=== PATIENT | male | born 1940 | race Caucasian/White ===

== ENCOUNTER 2017-10-04 06:17 | Day surgery (SDC) | payer OTHER ==
[2017-10-02 14:49] LABS: Absolute Lymphocytes (CBC) 1.8 K/uL (0.7-4.9); Absolute Monocytes 0.5 K/uL (0.1-1.3); Absolute Neutrophil 3.5 K/uL (1.8-8.0); Basophils % 0.3 % (0-1.3); Eosinophils % 4.4 % (0-4.4); Hematocrit 42.6 % (39.6-49.0); MCH 29.5 pg (27.0-35.0); MCV 88.1 fL (80-100); MPV 10.5 fL (7.6-11.3); Monocytes % 8.1 % (3.3-12.3); RBC Red Blood Cell Count 4.83 M/uL (4.33-5.43)
[2017-10-02 15:00] LABS: Protime INR 0.97
[2017-10-02 15:07] LABS: BUN Blood Urea Nitrogen 14 mg/dL (7-18); Bicarbonate 28 mmol/L (21-32); Glucose Level 92 mg/dL (74-106); Potassium 3.8 mmol/L (3.5-5.1); Sodium Level 142 mmol/L (136-145)
--- NOTE | 2017-10-02 15:14 | RAD REPORT ---
EXAM DESCRIPTION: RAD - Chest Pa And Lat (2 Views) - 10/02/2017 2:41 pm CLINICAL HISTORY: Preop chest, pending vascular catheterization procedure of the heart and lungs COMPARISON: None. TECHNIQUE: PA and lateral views of the chest were obtained. FINDINGS: The lungs are normal volume. Linear stranding in the left base is scarring or atelectasis. No failure or infiltrate findings. Trachea is midline. Heart size is normal and central vasculatur e is within normal limits. No pleural effusion or pneumothorax seen. Osteopenic and degenerative [place] changes are present. There is partial compression of a lower thoracic vertebrae an approximately 5 0% compression of a vertebrae at the thoracolumbar junction. No blastic, lytic or expansile component . These are probably benign osteoporotic compression fractures. Patient has osteopenia overall. No ao rtic abnormality. IMPRESSION: Scarring or atelectasis changes in the left base. No acute cardiopulmonary finding. Osteopenia with multiple compression fractures, age unknown. No aggressive characteristics seen.
[2017-10-04] MEDS ORDERED: NA CHLORIDE 0.9% 500 ML ONE (06:34)
[2017-10-04] MEDS ORDERED: LIDOCAINE 1% MPF 5 ML VIAL ONE (06:35)
[2017-10-04] MEDS ORDERED: MIDAZOLAM HCL 2 MG/2 ML INJ ONE (07:01)
[2017-10-04] MEDS ORDERED: HEPA 1000U/500MLS 1,000 UNIT/500 ML BAG IV ONE (07:01)
[2017-10-04] MEDS ORDERED: LIDOCAINE 1% MPF 2 ML AMPULE ONE (07:01)
[2017-10-04] MEDS ORDERED: ATROPINE SULF 1 MG/10 ML SYR IV ONE (07:02)
[2017-10-04] MEDS ORDERED: FENTANYL CITR 100 MCG/2 ML ONE (07:02)
[2017-10-04] MEDS ORDERED: NA CHLORIDE 0.9% 0 ML ONE (07:02)
[2017-10-04] MEDS ORDERED: NA CHLORIDE 0.9% 1,000 ML ONE (11:09)
--- NOTE | 2017-10-04 12:04 | OP ---
Surgeon: Steve Oneill MD Admitted to the animal laboratory helper as an outpatient. His primary care physician is Dr. Pollard. He was admitt ed for heart catheterization with possible intervention. Reason For Admission: Abnormal stress test and abnormal EKG and chest pain. He is 77 years old. He has a history of hypertension. Description Of Procedure: He was brought to the animal laboratory helper, prepped, and draped in the routine sterile fashion. A 6-Iraqi sheath was introduced in the right common femoral artery. StarClose was used t o close the case. A Juan catheter 3.5. left Juan, and a JR4 were used for the diagnostic minnie terization. He was found to have a 50% ostial left main and 100% occlusion of the proximal to mid LA D right at the diagonal septal level, minimal circumflex plaquing, normal RCA, right dominant. A 6-F rench sheath and catheters were used. No complications. Blood Loss: 5 cc. Postoperative Diagnosis: coronary artery disease, severe. Plan: Plan is for CABG. Total Conscious Sedation: 30 minutes. Additional Monument Letterer: Merlin Alva. The patient will have a film CD with him. I am going to attempt to transfer him to [place] today hop efully to Dr. Joaquin Baca service for surgery. TAWNYA/UBALDO Voice ID: [id number] Report ID: [id number]
== END 2017-10-04 12:12 | disposition short-term general hospital (02) ==
LOC: OR 06:17
PROC: 4A023N7 Measurement of Cardiac Sampling and Pressure, Left Heart, Percutaneous Approach (ICD-10-PCS; principal; 2017-10-04)
PROC: B211YZZ Fluoroscopy of Multiple Coronary Arteries using Other Contrast (ICD-10-PCS; 2017-10-04)
DX: I25.10 Atherosclerotic heart disease of native coronary artery without angina pectoris (principal); I25.82 Chronic total occlusion of coronary artery; I10 Essential (primary) hypertension; R06.02 Shortness of breath; Z82.49 Family history of ischemic heart disease and other diseases of the circulatory system
CPT/HCPCS: 36415; 71046; 80048; 85025; 85610; 85730; 93454; C1893; J2250; J3010; J7030; J0583; J2001

== ENCOUNTER 2018-12-20 15:26 | Emergency (ER) | payer OTHER ==
[2018-12-20] MEDS ORDERED: LIDOCAINE 1% MPF 5 ML VIAL ONE (16:02)
--- NOTE | 2018-12-20 16:36 | ER ---
Nurse's Notes [facility] Name: Shamar Hoyos Age: 78 yrs Sex: Male : 1940 Arrival Date: 12/20/2018 Time: 15:28 Bed 19 Private MD: Dinorah Pollard F Diagnosis: Facial Laceration;Unspecified injury of head Presentation: 12/20 15:29 Presenting complaint: Tree branch hit face while mowing, laceration to forehead noted, hb bleeding controlled. Transition of care: patient was not received from another setting of care. Complicating Factors: There are no complicating factors for this patient. Onset of symptoms was December 20, 2018. Risk Assessment: Do you want to hurt yourself or someone else? Patient reports no desire to harm self or others. Care prior to arrival: None. 15:29 Method Of Arrival: Ambulatory hb 15:29 Acuity: MIKAYLA 4 hb 15:50 Initial Sepsis Screen: Does the patient meet any 2 criteria? No. Patient's initial em sepsis screen is negative. Does the patient have a suspected source of infection? No. Patient's initial sepsis screen is negative. Historical: - Allergies: 15:31 No Known Allergies; hb - Immunization history:: Adult Immunizations up to date. - Social history:: Smoking status: Patient/guardian denies using tobacco. - Ebola Screening: : No symptoms or risks identified at this time. Screenin:50 Abuse screen: Denies threats or abuse. Nutritional screening: No deficits noted. em Tuberculosis screening: No symptoms or risk factors identified. Fall Risk None identified. Assessment: 15:50 General: Appears in no apparent distress. comfortable, Behavior is calm, cooperative. em Pain: Complains of pain in forehead Pain currently is 1 out of 10 on a pain scale. Neuro: Level of Consciousness is awake, alert, obeys commands, Oriented to person, place, time, situation, Appropriate for age. Cardiovascular: Capillary refill < 3 seconds Patient's skin is warm and dry. Respiratory: Airway is patent Respiratory effort is even, unlabored, Respiratory pattern is regular, symmetrical. Derm: Skin is intact, is healthy with good turgor, Skin is pink, warm \T\ dry. Wound noted forehead. Musculoskeletal: Injury Description: Laceration sustained to forehead is jagged, 0.5 to 2.5 cm long, not bleeding, was sustained 30-60 minutes ago. is bleeding no active bleeding noted. Vital Signs: 15:31 BP 163 / 72; Pulse 52; Resp 16; Temp 97.1; Pulse Ox 100% on R/A; Weight 102.51 kg; hb Height 6 ft. 1 in. (185.42 cm); Pain 1/10; 15:31 Body Mass Index 29.82 (102.51 kg, 185.42 cm) hb ED Course: 15:28 Patient arrived in ED. mr 15:29 Dinorah Pollard MD is Private Physician. mr 15:30 Triage completed. hb 15:31 Arm band placed on. hb 15:34 Steve Maddox LVN is Primary Nurse. em 15:50 Patient has correct armband on for positive identification. Bed in low position. Call em light in reach. Adult w/ patient. 15:54 Jenaro Hanson PA is PHCP. [facility] 15:54 Moody Engel MD is Attending Physician. [facility] 16:33 Dinorah Pollard MD is Referral Physician. [facility] 16:53 Assist provider with laceration repair on forehead that was 2.5 cm. or less using em sutures. Set up tray. Performed by Jenaro MASTERS Dressed with 4X4s, Kerlix, Neosporin, Patient tolerated well. Patient did not have IV access during this emergency room visit. Administered Medications: 16:30 Drug: Lidocaine (1 %) 5 mg {Note: administered by SONAM Eason.} Volume: 5 ml; Route: em Infiltration; Site: wound; 16:35 Follow up: Response: No adverse reaction; Pain is decreased em Outcome: 16:35 Discharge ordered by . [facility] 16:53 Discharged to home ambulatory, with family. em 16:53 Condition: good 16:53 Discharge instructions given to patient, family, Instructed on discharge instructions, follow up and referral plans. medication usage, Demonstrated understanding of instructions, follow-up care, medications, wound care, Prescriptions given X 1. 16:56 Patient left the ED. em Signatures: Jenaro Hanson PA PA jmJolly Hernandez mr Steve Maddox, CHARMAINE PILLING MACHINE OPERATOR em Nadine Curiel RN RN Corrections: (The following items were deleted from the chart) 16:56 16:53 No provider procedures requiring assistance completed. em em
--- NOTE | 2018-12-20 16:36 | EDPHYS ---
Physician Documentation [facility] Name: Shamar Hoyos Age: 78 yrs Sex: Male : 1940 Arrival Date: 12/20/2018 Time: 15:28 Bed 19 Private MD: Dinorah Pollard F ED Physician Moody Engel HPI: 12/20 16:27 This 78 yrs old Male presents to ER via Ambulatory with complaints of jmm Laceration To Head. 16:27 The patient or guardian reports injury, pain. Onset: The symptoms/episode jmm began/occurred acutely. Associated signs and symptoms: Loss of consciousness: This patient did not experience any loss of consciousness. This is a 78 year old male that presents to the ED after injuring his head while mowing. Patient hit is face against a tree limb. Denies LOC, vomiting, denies neck pain. Patient is UTD on immunizations. . Historical: - Allergies: 15:31 No Known Allergies; hb - Immunization history:: Adult Immunizations up to date. - Social history:: Smoking status: Patient/guardian denies using tobacco. - Ebola Screening: : No symptoms or risks identified at this time. ROS: 16:27 Constitutional: Negative for fever, chills, and weight loss, Cardiovascular: Negative jmm for chest pain, palpitations, and edema, Respiratory: Negative for shortness of breath, cough, wheezing, and pleuritic chest pain. 16:27 Skin: Positive for laceration(s). 16:27 Neuro: Negative for loss of consciousness, seizure activity. 16:27 All other systems are negative. Exam: 16:27 Constitutional: This is a well developed, well nourished patient who is awake, alert, jmm and in no acute distress. 16:27 Eyes: EOMI, no conjunctival erythema appreciated ENT: Moist Mucus Membranes Neck: Trachea midline, Supple Chest/axilla: Normal chest wall appearance and motion. Cardiovascular: Regular rate and rhythm. No edema appreciated Respiratory: Normal respirations, no respiratory distress appreciated Abdomen/GI: Non distended, soft Back: Normal ROM 16:27 Head/face: Exam is negative for rivero signs, hematoma, raccoon eyes, Noted is a laceration(s), that is jagged, 2.5 cm(s). 16:27 Skin: stellate laceration noted to the left eyebrow. 16:27 Neuro: Orientation: is normal, Mentation: is normal, Memory: is normal. Vital Signs: 15:31 BP 163 / 72; Pulse 52; Resp 16; Temp 97.1; Pulse Ox 100% on R/A; Weight 102.51 kg; hb Height 6 ft. 1 in. (185.42 cm); Pain 1/10; 15:31 Body Mass Index 29.82 (102.51 kg, 185.42 cm) hb Laceration: 16:30 Wound Repair of 2.5cm ( 1.0in ) subcutaneous laceration to forehead. Distal jmm neuro/vascular/tendon intact. Anesthesia: Local anesthetic administered with 3 mls of 1% lidocaine. Wound prep: Simple cleansing with betadine by me. Skin closed with 5 5-0 Prolene using simple sutures and sterile technique. Patient tolerated well. MDM: 16:04 Patient medically screened. [facility] 16:31 Data reviewed: vital signs, nurses notes. Counseling: I had a detailed discussion with porfirio the patient and/or guardian regarding: the historical points, exam findings, and any diagnostic results supporting the discharge/admit diagnosis, the need for outpatient follow up, to return to the emergency department if symptoms worsen or persist or if there are any questions or concerns that arise at home. ED course: Patient given wound infection and head injury return precautions. Patient understood and agrees with the plan of care. Patient and family understood and agrees with the plan of care. . 12/20 16:50 Order name: Dressing - Wound; Complete Time: 16:50 em 12/20 16:50 Order name: Gloves, Sterile; Complete Time: 16:51 em 12/20 16:50 Order name: Setup Suture Tray; Complete Time: 16:51 em Administered Medications: 16:30 Drug: Lidocaine (1 %) 5 mg {Note: administered by PA. Jenaro} Volume: 5 ml; Route: em Infiltration; Site: wound; 16:35 Follow up: Response: No adverse reaction; Pain is decreased em Disposition: 12/20/18 16:35 Discharged to Home. Impression: Facial Laceration, Unspecified injury of head. - Condition is Stable. - Discharge Instructions: Head Injury, Adult, Facial Laceration. - Prescriptions for Bactrim DS 800- 160 mg Oral Tablet - take 1 tablet by ORAL route every 12 hours for 5 days; 10 tablet. - Medication Reconciliation Form, Thank You Letter, Antibiotic Education, Prescription Opioid Use form. - Follow up: Dinorah Pollard MD; When: 5 - 6 days; Reason: Recheck today's complaints, Continuance of care, Staple/Suture removal, Re-evaluation by your physician. Addendum: 12/22/2018 06:57 Co-signature as Attending Physician, Moody Engel MD. g s Signatures: Jenaro Hanson PA PA Steve Agee, DIRECTOR OF ROOMS DIRECTOR OF ROOMS em Nadine Curiel, RN RN Moody Engel MD MD Corrections: (The following items were deleted from the chart) 12/20 16:56 16:35 12/20/2018 16:35 Discharged to Home. Impression: Facial Laceration; Unspecified em injury of head. Condition is Stable. Forms are Medication Reconciliation Form, Thank You Letter, Antibiotic Education, Prescription Opioid Use. Follow up: Dinorah Pollard; When: 5 - 6 days; Reason: Recheck today's complaints, Continuance of care, Staple/Suture removal, Re-evaluation by your physician. porfirio
[2018-12-20 17:00] VITALS: BP 163/72; TEMP 97.1; O2SAT 100
== END 2018-12-20 16:56 | disposition home or self-care (01) ==
LOC: ER 15:26
PROC: 0JQ10ZZ Repair Face Subcutaneous Tissue and Fascia, Open Approach (ICD-10-PCS; principal; 2018-12-20)
DX: S01.81XA Laceration without foreign body of other part of head, initial encounter (principal); S09.90XA Unspecified injury of head, initial encounter; W22.8XXA Striking against or struck by other objects, initial encounter; Y93.H9 Activity, other involving exterior property and land maintenance, building and construction; Y92.9 Unspecified place or not applicable
CPT/HCPCS: 99283

== ENCOUNTER 2024-10-13 11:36 | Inpatient (IN) | payer OTHER ==
--- NOTE | 2024-10-13 12:36 | RAD REPORT ---
EXAMINATION: CT ABDOMEN AND PELVIS WITHOUT CONTRAST CLINICAL INDICATION: difficulty urinating TECHNIQUE: CT abdomen and pelvis was performed, without IV contrast, as per department protocol. Axia l, sagittal and coronal reconstructions were obtained. One or more of the following dose reduction techniques were used: Automated exposure control, adjustment of the mA and kV according to the patien t size, and iterative reconstruction. Unless otherwise specified, incidental findings do not require dedicated imaging follow-up. COMPARISON: No prior exam. FINDINGS: The lack of intravenous contrast limits the sensitivity of this exam for evaluation of solid visceral organs, vascular structures, and retroperitoneum. LOWER CHEST: Minimal atelectasis in both lung bases. Small hiatal hernia. LIVER:Normal in size and contour. No focal lesion. Cholecystectomy clips. SPLEEN: Normal size. No focal lesion. PANCREAS: No mass, ductal dilation, or miguel-pancreatic fluid. ADRENALS: Normal; no mass. KIDNEYS AND URETERS: Severe bilateral hydronephrosis and hydroureter is present. URINARY BLADDER: Urinary bladder is distended. Prostate gland mildly prominent. GASTROINTESTINAL TRACT: No evidence of bowel obstruction, significant free fluid, free air or abscess . Advanced diverticulosis coli of the descending and sigmoid colon without diverticulitis. APPENDIX: Normal appendix. LYMPH NODES: No lymphadenopathy. MUSCULOSKELETAL: Diffuse osteopenia with wedge compression deformities affecting the upper lumbar lev els. ADDITIONAL FINDINGS: Moderate to large fat-containing bilateral inguinal hernias. IMPRESSION: Severe bilateral hydronephrosis and hydroureter with urinary bladder distention, may indicate bladder outlet obstruction. Moderate to large fat-containing bilateral inguinal hernias. Prominent sigmoid diverticulosis coli without diverticulitis.
[2024-10-13 12:38] LABS: Urine Microscopic Reflex YN NO UMIC
[2024-10-13 12:40] LABS: Absolute Lymphocytes (CBC) 1.2 K/uL (0.7-4.9); Hematocrit 36.5 % (39.6-49.0); Hemoglobin 11.9 g/dL (13.6-17.9); MCH 28.7 pg (27.0-35.0); MCHC 32.4 g/dL (32.0-36.0); MCV 88.6 fL (80-100); MPV 10.3 fL (7.6-11.3); Nucleated RBC Absolute Count 0.0 (0-0); Nucleated Red Blood Cells % 0.0 % (0-0); RBC Red Blood Cell Count 4.12 M/uL (4.33-5.43); White Blood Count 5.10 thou/uL (4.3-10.9)
[2024-10-13 12:58] LABS: ALT/SGPT 17.0 U/L (16-61); AST/SGOT 13.0 U/L (15-37); Albumin 3.4 g/dL (3.4-5.0); Albumin/Globulin Ratio 1.0 (1.1-1.8); Alkaline Phosphatase 78.0 U/L (45-117); Anion Gap 8.6 mEq/L (5.0-15.0); BUN Blood Urea Nitrogen 36.0 mg/dL (7-18); Globulin 3.5 g/dL (2.3-3.5); Glucose Level 97.0 mg/dL (74-106); Lipase 45.0 U/L (13-75); Potassium 4.6 mEq/L (3.5-5.1)
--- NOTE | 2024-10-13 14:02 | ER ---
Nurse's Notes [facility] Name: Shamar Hoyos Age: 84 yrs Sex: Male : 1940 Arrival Date: 10/13/2024 Time: 11:36 Bed 17 Private MD: Diagnosis: Retention of urine, unspecified;Acute kidney failure, unspecified-acute on chronic Presentation: 10/13 11:56 Chief complaint: Patient states: he was sent to the ED for a catheter by his primary ap3 doctor. patient reports he is able to urinate, and denies any urinary symptoms at this time. Coronavirus screen: At this time, the client does not indicate any symptoms associated with coronavirus-19. Ebola Screen: No symptoms or risks identified at this time. Initial Sepsis Screen: Does the patient meet any 2 criteria? No. Patient's initial sepsis screen is negative. Does the patient have a suspected source of infection? No. Patient's initial sepsis screen is negative. Risk Assessment: Do you want to hurt yourself or someone else? Patient reports no desire to harm self or others. Onset of symptoms is unknown. 11:56 Method Of Arrival: Ambulatory ap3 11:56 Acuity: MIKAYLA 3 ap3 Triage Assessment: 11:59 General: Appears in no apparent distress. Behavior is calm, cooperative, appropriate ap3 for age. Pain: Denies pain. Neuro: Level of Consciousness is awake, alert, obeys commands, Oriented to person, place, time, situation, Appropriate for age. Cardiovascular: Patient's skin is warm and dry. Respiratory: Airway is patent Respiratory effort is even, unlabored, Respiratory pattern is regular, symmetrical. : Denies burning with urination, pain. Historical: - Allergies: 11:58 No Known Allergies; ap3 - PMHx: 11:58 Hypertensive disorder; ap3 - PSHx: 11:58 "open heart sx"; ap3 - Immunization history:: Adult Immunizations up to date. - Infectious Disease History:: Denies. - Social history:: Smoking status: Patient denies any tobacco usage or history of. Screenin:59 [facility] ED Fall Risk Assessment (Adult) History of falling in the last 3 months, ap3 including since admission No falls in past 3 months (0 pts) Confusion or Disorientation No (0 pts) Intoxicated or Sedated No (0 pts) Impaired Gait No (0 pts) Mobility Assist Device Used No (0 pt) Altered Elimination No (0 pt) Score/Fall Risk Level 0 - 2 = Low Risk Oriented to surroundings, Maintained a safe environment, Educated pt \\T\\ family on fall prevention, incl call for assistance when getting out of bed, Assessed \\T\\ reinforced patient's understanding of fall precautions, Hourly rounding (assess needs \\T\\ fall precautionary measures) done, Used ambulatory aids as needed (educated on \\T\\ assisted with). Abuse screen: Denies threats or abuse. Nutritional screening: No deficits noted. Tuberculosis screening: No symptoms or risk factors identified. Assessment: 12:24 General: Appears in no apparent distress. comfortable, Behavior is calm, cooperative, dd2 appropriate for age. Pain: Denies pain. Neuro: No deficits noted. Level of Consciousness is awake, alert, obeys commands, Oriented to person, place, time, situation, Appropriate for age. Cardiovascular: No deficits noted. Respiratory: No deficits noted. GI: No deficits noted. No signs and/or symptoms were reported involving the gastrointestinal system. : Reports HE DOESN'T FEEL LIKE HE'S EMPTYING HIS BLADDER FULLY Denies burning with urination, pain. EENT: No deficits noted. No signs and/or symptoms were reported regarding the EENT system. Derm: No deficits noted. No signs and/or symptoms reported regarding the dermatologic system. Musculoskeletal: No deficits noted. No signs and/or symptoms reported regarding the musculoskeletal system. Circulation, motion, and sensation intact. Range of motion: intact in all extremities. Vital Signs: 11:56 Pulse 42; Resp 18; Temp 97.8; Pulse Ox 100% ; Weight 97.07 kg; Height 6 ft. 1 in. ; ap3 11:59 BP 169 / 69; ap3 13:15 BP 158 / 62; Pulse 51; Resp 16; Pulse Ox 100% on R/A; dd2 14:47 BP 174 / 70; Pulse 50; Resp 16; Pulse Ox 99% on R/A; dd2 11:56 Body Mass Index 28.23 (97.07 kg, 185.42 cm) ap3 [place] Coma Score: 12:24 Eye Response: spontaneous(4). Motor Response: obeys commands(6). Verbal Response: dd2 oriented(5). Total: 15. ED Course: 11:39 Patient arrived in ED. mr 11:40 Carrie Obrien FNP-C is [facility]. kb 11:40 Js Hakw MD is Attending Physician. kb 11:58 Triage completed. ap3 11:59 Arm band placed on right wrist. ap3 12:10 CT Stone Protocol In Process Unspecified. EDMS 12:24 Patient has correct armband on for positive identification. Bed in low position. Call dd2 light in reach. Side rails up X 1. Client placed on continuous cardiac and pulse oximetry monitoring. NIBP monitoring applied. Door closed. Noise minimized. Warm blanket given. Pillow given. Verbal reassurance given. 12:24 No provider procedures requiring assistance completed. Patient maintains SpO2 dd2 saturation greater than 95% on room air. 12:53 CMP Sent. bc6 12:53 Lipase Sent. bc6 12:53 Initial lab(s) drawn, by me, sent to lab. Inserted saline lock: 20 gauge in left bc6 antecubital area, using aseptic technique. Blood collected. Flushed with 10 mL NS. 12:54 Reed cath inserted, using sterile technique, 16 Fr., by me, balloon inflated, to bc6 gravity drainage, clamped. urine specimen collected. 14:01 Tim Hawk MD is Hospitalizing Provider. kb 14:46 Patient admitted, IV remains in place. dd2 15:11 Provided Education on: ADMISSION EDUCATION . dd2 Administered Medications: No medications were administered Medication: 12:24 VIS not applicable for this client. dd2 Output: 13:45 Urine: 780ml (Reed); Total: 780ml. dd2 14:56 Urine: 1140ml (Reed); Total: 1920ml. dd2 Outcome: 14:02 Decision to Hospitalize by Provider. kb 14:46 Admitted to ER Hold. Please see [facility] for further documentation. dd2 14:46 Condition: stable 14:46 Instructed on the need for admit, Demonstrated understanding of instructions, 16:14 Patient left the ED. dd2 Signatures: Dispatcher [employer] EDMS Carrie Obrien FNP-C [employer]-Ckb CancholaJolly, Reg Reg mr Aura Pryor RN RN ap3 Gala Rojo bc6 BROCK NAGY RN RN dd2
--- NOTE | 2024-10-13 14:03 | EDPHYS ---
Physician Documentation [facility] Name: Shamar Hoyos Age: 84 yrs Sex: Male : 1940 Arrival Date: 10/13/2024 Time: 11:36 Bed 17 Private MD: ED Physician Js Hawk HPI: 10/13 14:00 This 84 yrs old Male presents to ER via Ambulatory with complaints of Urinary Problem. kb 14:00 Pt is an 84 year old male who presents for bryant placement. Pt states he was seen by Dr josh Duffy, sent for an US due to worsening kidney function, the US showed bladder distention and hydronephrosis so he was told to come here for bryant. Pt states he has been urinating normally and has no complaints . Historical: - Allergies: 11:58 No Known Allergies; ap3 - PMHx: 11:58 Hypertensive disorder; ap3 - PSHx: 11:58 "open heart sx"; ap3 - Immunization history:: Adult Immunizations up to date. - Infectious Disease History:: Denies. - Social history:: Smoking status: Patient denies any tobacco usage or history of. ROS: 13:12 Constitutional: As per HPI kb Exam: 13:12 Constitutional: This is a well developed, well nourished patient who is awake, alert, kb and in no acute distress. Head/Face: Normocephalic, atraumatic. ENT: Moist Mucous membranes Cardiovascular: Regular rate Respiratory: Respirations even and unlabored. No increased work of breathing. Talking in full sentences Abdomen/GI: Soft, non-tender. No distention Skin: Warm, dry with normal turgor. Normal color. MS/ Extremity: Pulses equal, no cyanosis. Neurovascular intact. Full, normal range of motion. Neuro: Awake and alert, GCS 15, oriented to person, place, time, and situation. Vital Signs: 11:56 Pulse 42; Resp 18; Temp 97.8; Pulse Ox 100% ; Weight 97.07 kg; Height 6 ft. 1 in. ; ap3 11:59 BP 169 / 69; ap3 13:15 BP 158 / 62; Pulse 51; Resp 16; Pulse Ox 100% on R/A; dd2 14:47 BP 174 / 70; Pulse 50; Resp 16; Pulse Ox 99% on R/A; dd2 11:56 Body Mass Index 28.23 (97.07 kg, 185.42 cm) ap3 Domingo Coma Score: 12:24 Eye Response: spontaneous(4). Motor Response: obeys commands(6). Verbal Response: dd2 oriented(5). Total: 15. MDM: 11:41 Medical Screening Exam initiated kb 11:46 External Records Reviewed: Outpatient radiology: Ultrasound retroperitoneal complete kb performed at [facility] in [place] on 10/06/2024 reviewed. Impression: Severe bilateral hydronephrosis, may be secondary to significantly distended urinary bladder. Prostatomegaly with signs of chronic outlet obstruction. Marked postvoid residual volume concerning for urinary retention. Recommend clinical correlation.. 13:49 Data reviewed: vital signs, nurses notes. kb 13:55 Differential diagnosis: uti, acute kidney failure, abnormal electrolytes, urinary kb retention. Consideration of Admission/Observation Patient was admitted/placed on observation. Escalation of care including admission/observation considered. Management of patient was discussed with the following: University Archivist: Dr Clive ng pt admitted for worsening IV hydration, bryant and consult to Dr Lockhart. . 13:57 Management of patient was discussed with the following: University Archivist: Call placed to Dr josh Lockhart, message left. Awaiting response. Management of patient was discussed with the following: Hospitalist: Hospitalist team, pt accepted for admission under Dr Hawk. Historians other than the Patient: Spouse/Significant Other: spouse. Counseling: I had a detailed discussion with the patient and/or guardian regarding the historical points, exam findings, and any diagnostic results supporting the discharge/admit diagnosis, lab results, radiology results, the need for further work-up and treatment in the hospital. 10/13 11:50 Order name: CBC with Diff; Complete Time: 12:50 kb 10/13 11:50 Order name: CMP; Complete Time: 12:59 kb 10/13 11:50 Order name: Lipase; Complete Time: 12:59 kb 10/13 11:50 Order name: UA Rfx Nazario Cult if indicated; Complete Time: 12:50 kb 10/13 11:50 Order name: CT Stone Protocol; Complete Time: 12:50 kb 10/13 11:50 Order name: IV Saline Lock; Complete Time: 12:33 kb 10/13 11:50 Order name: Labs collected and sent; Complete Time: 12:33 kb 10/13 11:50 Order name: Bladder Scanner: obtain PVR please; Complete Time: 12:51 kb Administered Medications: No medications were administered Disposition: 18:22 Co-signature as Attending Physician, Js Hawk MD I reviewed the patient's care rn provided by the Advanced Practice Provider and agree with the diagnosis and treatment plan. Disposition Summary: 10/13/24 14:02 Hospitalization Ordered Notes: Hospitalization Status: Observation kb Provider: Tim Hawk Location: Telemetry/MedSurg (observation) kb Condition: Stable kb Problem: new kb Symptoms: are unchanged kb Bed/Room Type: Standard kb Room Assignment: 209(10/13/24 14:38) bd Diagnosis - Retention of urine, unspecified kb - Acute kidney failure, unspecified - acute on chronic kb Forms: - Medication Reconciliation Form kb - SBAR form kb - Leadership Thank You Letter kb Signatures: Dispatcher [employer] EDMS Carrie Obrien, ELECTRIC ARC FURNACE OPERATOR-C ELECTRIC ARC FURNACE OPERATOR-Ckb Petty Wyman Roman, MD MD rn Prokisch, Amanda, RN RN ap3 Corrections: (The following items were deleted from the chart) 11:50 11:50 CBC+H.LAB.BRZ ordered. EDMS EDMS 11:50 11:50 COMPREHENSIVE METABOLIC PANEL+C.LAB.BRZ ordered. EDMS EDMS 11:50 11:50 LIPASE+C.LAB.BRZ ordered. EDMS EDMS 11:50 11:50 UA Rfx Nazario Cult if indicated+U.LAB.BRZ ordered. EDMS EDMS 11:50 11:50 Stone Protocol+CT.RAD.BRZ ordered. EDMS EDMS 14:38 14:02 kb bd
[2024-10-13] MEDS ORDERED: ACETAMINOPHEN 325 MG TABLET PO PRN (14:28)
[2024-10-13] MEDS ORDERED: ONDANSETRON 4 MG/2 ML VIAL IV PRN (14:28)
--- NOTE | 2024-10-13 14:41 | P.HP ---
Certification for Inpatient Patient admitted to: Inpatient With expected LOS: >2 Midnights Patient will require the following post-hospital care: None Practitioner: I am a practitioner with admitting privileges, knowledge of patient current condition, hospital course, and medical plan of care. Services: Services provided to patient in accordance with Admission requirements found in Title 42 Section 412.3 of the Code of Federal Regulations Patient History Date of Service: 10/13/24 Reason for admission: Urinary retention, bilateral hydronephrosis History of Present Illness: 84-year-old male with history of chronic systolic congestive heart failure, hypertension, hyperlipidemia, CKD was referred to the emergency department by his instrument tech for suspected bladder outlet obstruction. Patient was evaluated in the emergency department his bladder scan showed over 800 mL of urine in his bladder abdominal CT was performed which showed severe bilateral hydronephrosis and hydroureter with urinary bladder distention which may indicate bladder outlet obstruction. Moderate to large fat-containing bilateral inguinal hernias, prominent sigmoid diverticulosis without diverticulitis. Reed catheter was inserted while patient was in the emergency department, he had around 1 L output at the time my exam the Reed catheter was clamped. Labs are significant for a creatinine of 1.91 GFR of 34 BUN of 36 hemoglobin 0.9 hematocrit 36.5 UA with 3+ glucose. ED provider discussed case with nephrology, urology and patient will be admitted for further management with Reed catheter in place. Patient lives that he used to be on Flomax, he stopped it for around a week but reports he started taking it again. Unclear on the timeline of this. Allergies No Known Allergies Allergy (Verified 10/02/17 14:24) - Past Medical/Surgical History -: Chronic systolic congestive heart failure -: Hypertension -: Hyperlipidemia -: CKD Psychosocial/ Personal History: Lives at home with family - Social History Alcohol use: No CD- Drugs: No Caffeine use: Yes Place of Residence: Home Review of Systems 10-point ROS is otherwise unremarkable Genitourinary: Frequency Physical Examination - Physical Exam General: Alert, In no apparent distress, Oriented x3 HEENT: Atraumatic, PERRLA, EOMI, Sclerae nonicteric Neck: Supple, 2+ carotid pulse no bruit, No LAD, Without JVD or thyroid abnormality Respiratory: Clear to auscultation bilaterally, Normal air movement Cardiovascular: Regular rate/rhythm, Normal S1 S2 Gastrointestinal: Normal bowel sounds, No tenderness Musculoskeletal: No tenderness Integumentary: No rashes Neurological: Normal gait, Normal speech, Normal strength at 5/5 x4 extr, Normal affect - Studies Laboratory Data (last 24 hrs) 10/13/24 10/13/24 12:28 12:28 WBC 5.10 Hgb 11.9 L Hct 36.5 L Plt Count 135 L Sodium 143 Potassium 4.6 BUN 36 H Creatinine 1.91 H Glucose 97 Total Bilirubin 0.4 AST 13 L ALT 17 Alkaline Phosphatase 78 Lipase 45 Assessment and Plan - Plan Assessment: Severe bilateral hydroureteronephrosis Suspected bladder outlet obstruction S/P Reed catheter insertion CKD-unknown baseline renal function Chronic systolic congestive heart failure Sinus bradycardia Hypertension Hyperlipidemia Plan: Severe bilateral hydroureteronephrosis Suspected bladder outlet obstruction S/P Reed catheter insertion CKD-unknown baseline renal function Reed catheter placed in ED with initial return of around 1 L, was clamped at my time of evaluation Nephrology and urology consultation placed Gentle IV fluids overnight Likely to need repeat renal ultrasound during hospitalization Renal diet Start/resume Flomax Patient very unclear on home medications Chronic systolic congestive heart failure Sinus bradycardia Hypertension Hyperlipidemia Continue home medications when verified Patient reports that his heart rate runs in the low 40s but occasionally higher He reports he takes Entresto, carvedilol, Farxiga but he is unsure of his doses Verify home medications this is possible. DVT PPX: Heparin subcu Code status: Full code Discharge Plan: Home Plan to discharge in: 48 Hours - Advance Directives Does patient have a Living Will: No Does patient have a Durable POA for Healthcare: No - Code Status/Comfort Care Code Status Assessed: Yes (Full code) Critical Care: No Time Spent Managing Pts Care (In Minutes): 64
[2024-10-13 16:36] VITALS: BMI 28.2
[2024-10-13 16:40] VITALS: O2SAT 99
[2024-10-13] MEDS: NA CHLORIDE 0.9% 1,000 ML IV SCH (16:48)
[2024-10-13] MEDS: HEPARIN 5000 UNIT/ML 1 ML VIAL SQ SCH (21:17)
[2024-10-13] MEDS: TAMSULOSIN 0.4 MG SR CAP PO SCH (21:17)
[2024-10-13] MEDS ORDERED: SACUBITRIL/VALSARTAN 49/51 MG TAB PO SCH (23:25)
[2024-10-13] MEDS: ATORVASTATIN 40 MG TAB PO SCH (23:33)
[2024-10-13] MEDS: SACUBITRIL/VALSARTAN 49/51 MG TAB PO SCH (23:37)
[2024-10-14 06:12] LABS: Absolute Lymphocytes (CBC) 1.2 K/uL (0.7-4.9); Hematocrit 31.7 % (39.6-49.0); Hemoglobin 10.8 g/dL (13.6-17.9); MCH 29.6 pg (27.0-35.0); MCHC 34.0 g/dL (32.0-36.0); MCV 87.1 fL (80-100); MPV 10.3 fL (7.6-11.3); Nucleated RBC Absolute Count 0.0 (0-0); Nucleated Red Blood Cells % 0.0 % (0-0); RBC Red Blood Cell Count 3.64 M/uL (4.33-5.43); White Blood Count 6.70 thou/uL (4.3-10.9)
[2024-10-14 06:25] LABS: Anion Gap 6.9 mEq/L (5.0-15.0); BUN Blood Urea Nitrogen 30.0 mg/dL (7-18); Glucose Level 86.0 mg/dL (74-106); Potassium 3.9 mEq/L (3.5-5.1)
--- NOTE | 2024-10-14 17:46 | P.PN ---
Date of Service: 10/14/24 Subjective Awake, at the bedside Awaiting for Dr. Lockhart to round Kidney function improved since Reed catheter was placed, good urine output ROS 10 point ROS as noted above, otherwise negative Physical Exam General: Alert and Oriented x3, NAD HEENT: Atraumatic, PERRLA, EOMI, Sclerae nonicteric Neck: Supple, 2+ carotid pulse no bruit, No LAD, Without JVD or thyroid abnormality Respiratory: Clear BBS, Normal air movement, on RA Cardiovascular: RRR, Normal S1 S2 Gastrointestinal: Normal bowel sounds, No tenderness Musculoskeletal: No tenderness Integumentary: No rashes Neurological: Normal gait, Normal speech, Normal strength at 5/5 x4 extr, Normal affect Vitals Reviewed Problem list Severe bilateral hydroureteronephrosis Suspected bladder outlet obstruction S/P Reed catheter insertion CKD-unknown baseline renal function Chronic systolic congestive heart failure Sinus bradycardia Hypertension Hyperlipidemia Assessment and Plan Severe bilateral hydroureteronephrosis Suspected bladder outlet obstruction S/P Reed catheter insertion CKD-unknown baseline renal function Reed catheter placed in ED with initial return of around 1 L, was clamped at my time of evaluation Nephrology and urology consultation placed Gentle IV fluids Likely to need repeat renal ultrasound during hospitalization Renal diet Start/resume Flomax Chronic systolic congestive heart failure Sinus bradycardia Hypertension Hyperlipidemia Continue home medications when verified Patient reports that his heart rate runs in the low 40s but occasionally higher He reports he takes Entresto, carvedilol, Farxiga but he is unsure of his doses Continuous telemetry DVT PPX: Heparin subcu Code status: Full code Discharge Plan: Home Plan to discharge in: 48 Hours Time Spent Managing Pts Care (In Minutes): 35
--- NOTE | 2024-10-14 18:11 | CON ---
Date of Consultation: 10/14/2024 Reason For Consultation: The patient was admitted to the hospital with acute kidney injury. History Of Present Illness: This is an 84-year-old gentleman with significant past medical history o f chronic kidney disease, hypertension complicated with congestive heart failure and CAD, hyperlipide ahmet. The patient came to Dr. Fuchs, found to have possible obstructive uropathy. For that reason, the patient was referred to the hospital. In the hospital, the patient was found bilateral hydronephrosis, Reed inserted. Upon arrival to the hospital, creatinine 1.9. The patient's, after Reed insertion, kidney function has been improved, currently creatinine down to 1.4, GFR of 49. The patient denied taking any nonsteroidal. No IV contrast. Past Medical History: Includes; 1. Congestive heart failure. 2. Hypertension. 3. Hyperlipidemia. Past Surgical History: Includes CABG. Allergies: NO KNOWN DRUGS ALLERGY. Social History: Denied smoking, denied drinking, denied drugs abuse. Family History: Positive for hypertension. Home Medications: Include losartan, folic acid, sodium bicarb, amlodipine, , Pepcid, Eliqu is, Tylenol. Review of Systems: Head and Neck: No red eye. No ear pain. GI: No nausea. No vomiting. : No polyuria. No dysuria. Has urinary retention. DIRECT SUPPORT WORKER: Not applicable. Respiratory: No shortness of breath. Cardiovascular: No chest pain. Endocrine: No polydipsia. Skin: No rash. Physical Examination: Vital Signs: When I saw the patient; blood pressure 131/60, pulse of 53. Chest: Clear to auscultation. Heart: S1, S2. Regular. Systolic murmur. Abdomen: Soft, nontender. Extremity: Dressing on the foot. Neurologic: Alert. No focality. Laboratory Data: WBC 6.7, hemoglobin 10.8. Sodium 141, potassium 3.9, bicarb 24, BUN 30, creatinine 1.4, calcium 7.8. Current Medications: The patient on include heparin, atorvastatin, carvedilol, Entresto, IV fluid. Assessment And Plan: 1. Acute kidney injury secondary to obstructive uropathy, currently normal volume, good urine output. Kidney function has been improving. I am going to continue Reed. We will start the patient on Fl omax and we will follow up the patient. 2. Hypertension, controlled, optimal. Continue Entresto. Decrease IV fluid. 3. Congestive heart failure. Normal volume. Continue current treatment. Decrease IV fluid. Plan t o discharge tomorrow. 4. Obstructive uropathy. As above, started Flomax. Continue Reed. ELMA/UBALDO Voice ID: [id number] Report ID: [id number]
--- NOTE | 2024-10-14 18:35 | P.CNS ---
Date of Consult: 10/14/24 Reason for Consult: Obstructive uropathy Requesting Physician: Heidi Schwartz Chief Complaint: Urinary retention, bilateral hydronephrosis History of Present Illness: 84-year-old gentleman with systolic CHF s/p CABG x 1 in 09/2016, hypertension, hyperlipidemia, and CKD who presented via the emergency department recommended for admission by his primary care physician, Dr. Duffy, following an ultrasound obtained at [facility] revealing bilateral hydroureteronephrosis and distended bladder. In the emergency department, a urethral Reed catheter was placed, and a large volume, greater than 1 L, of urine apparently drained, sufficient for them to clamp the Reed to try to decrease rapid decompression. He was then admitted and a consult placed. He denies any gross hematuria, but he acknowledges some occasional dysuria as well as obstructive LUTS that have been intermittent and present for the last several years. He was previously on Flomax 0.4 mg daily, but he had some other procedure scheduled within the last couple of weeks, so he stopped taking the Flomax. He denies having previously seen a urologist or having any urologic surgery. Past medical history: As above Past surgical history: CABG x 1 in 09/2016 and cholecystectomy No known drug allergies Family history: Denies urologic malignancy, but his father also had issues with BPH Social history: He is a former small-volume smoker of about 1/4 pack a week Examination: Well-appearing and in no acute distress Alert, awake No dyspnea or sign of respiratory distress at rest Comfortable and well-appearing seated in the hospital bed Abdomen nontender Urethral Reed catheter in place draining clear yellow urine but some blood sediment seen within the tubing. Meatus orthotopic and patent, but some lichen sclerosis appearing changes of the glans and foreskin/shaft skin, adherent to the montalvo of the glans 10/13/2024 WBC 5.1, hemoglobin 11.9, platelets 135, creatinine 1.91 with EGFR 34, LFTs normal, alk phos 78, UA 3+ glucose otherwise negative 10/14/2024 creatinine 1.48 with EGFR 46 Assessment and recommendations: 84-year-old gentleman with systolic CHF s/p CABG x 1 in 09/2016, hypertension, hyperlipidemia, and CKD with BPH with LUTS, now complicated by large volume acute urinary retention p urethral catheterization with >1L drained, potentially at risk for postobstructive diuresis. - Recommend continue tamsulosin/Flomax but increased to twice daily dosing, 0.8 mg a day total. -Monitor I's and O's strictly and keep I's equal to O's, replacing urine output 0.5 cc 1/2NS or LR per 1 cc urine output. -Given the large volume of retention, I explained to the patient and his family that this can cause detrusor dysfunction and prohibit the ability to void for a period of time. As a result, I recommended he keep the catheter for at least 7 to 10 days, targeting 10 to 14 days of catheterization. - Thereafter, we can arrange for him to have a voiding trial in the urology clinic with Cipro/Levaquin antimicrobial prophylaxis provided. -A catheter culture should be obtained prior to the voiding trial so that we can provide additional antimicrobial therapy as necessary if fluoroquinolone resistance identified. -Should he be successfully able to void or not able to void, either way, follow- up should be established for cystoscopy and TRUS -PSA prior to cystoscopy follow-up -We will consider the role for surgical therapy versus initiation of finasteride, given his underlying medical comorbidity and CHF. Allergies No Known Allergies Allergy (Verified 10/02/17 14:24) Home medications list reviewed: Yes Home Medications: Atorvastatin Calcium [Lipitor] 40 mg PO BEDTIME 10/13/24 Carvedilol [Coreg] 12.5 mg PO BID 10/13/24 Dapagliflozin Propanediol [Farxiga] 5 mg PO DAILY 10/13/24 Sacubitril/Valsartan [Entresto 49 mg-51 mg Tablet] 49 mg PO BID 10/13/24 Tamsulosin [Flomax*] 0.4 mg PO DAILY 10/13/24 - Past Medical/Surgical History Diabetic: No -: Chronic systolic congestive heart failure -: Hypertension -: Hyperlipidemia -: CKD Psychosocial/ Personal History: Lives at home with family - Social History Alcohol use: No CD- Drugs: No Caffeine use: Yes Place of Residence: Home Physical Examination Temp Pulse Resp BP Pulse Ox 97.7 F 54 18 164/71 H 97 10/14/24 16:00 10/14/24 16:00 10/14/24 16:00 10/14/24 16:00 10/14/24 16:00 - Problems (1) Urinary retention Current Visit: Yes Status: Acute (2) BPH loc w urin obs/LUTS Current Visit: Yes Status: Acute (3) Bilateral hydronephrosis Current Visit: Yes Status: Acute (4) Acute on chronic kidney failure Current Visit: Yes Status: Acute Critical Care: No Time Spent Managing Pts care (In Minutes): 35
[2024-10-14] MEDS ORDERED: ATORVASTATIN 40 MG TAB PO SCH (21:00)
[2024-10-14] MEDS: NA CHLORIDE 0.9% 1,000 ML IV SCH (21:31)
[2024-10-14] MEDS: SACUBITRIL/VALSARTAN 49/51 MG TAB PO SCH (21:32)
[2024-10-14] MEDS ORDERED: SACUBITRIL/VALSARTAN 49/51 MG TAB PO SCH (23:21)
[2024-10-15 07:20] LABS: Absolute Lymphocytes (CBC) 1.3 K/uL (0.7-4.9); Hematocrit 31.9 % (39.6-49.0); Hemoglobin 10.7 g/dL (13.6-17.9); MCH 29.5 pg (27.0-35.0); MCHC 33.4 g/dL (32.0-36.0); MCV 88.3 fL (80-100); MPV 11.6 fL (7.6-11.3); Nucleated RBC Absolute Count 0.0 (0-0); Nucleated Red Blood Cells % 0.1 % (0-0); RBC Red Blood Cell Count 3.62 M/uL (4.33-5.43); White Blood Count 5.20 thou/uL (4.3-10.9)
[2024-10-15 07:43] LABS: Anion Gap 11.0 mEq/L (5.0-15.0); BUN Blood Urea Nitrogen 20.0 mg/dL (7-18); Glucose Level 90.0 mg/dL (74-106); Potassium 4.0 mEq/L (3.5-5.1)
[2024-10-15 08:33] VITALS: BP 157/74; TEMP 98.1
[2024-10-15] MEDS ORDERED: Dapagliflozin Propanediol [Farxiga] 5 MG Tablet *PT OWN MED PO SCH (09:00)
[2024-10-15] MEDS ORDERED: TAMSULOSIN 0.4 MG SR CAP PO SCH (09:00)
[2024-10-15] MEDS: Dapagliflozin Propanediol [Farxiga] 5 MG Tablet *PT OWN MED PO SCH (09:16)
--- NOTE | 2024-10-15 10:26 | P.DS ---
Admission Date: 10/13/24 Discharge Date: 10/15/24 Disposition: DC HOME/HOME HEALTH CARE Discharge Condition: GOOD Reason for Admission: Urinary retention, bilateral hydronephrosis Brief History of Present Illness: Diagnosis Severe bilateral hydroureteronephrosis Suspected bladder outlet obstruction S/P Reed catheter insertion CKD-unknown baseline renal function Chronic systolic congestive heart failure Sinus bradycardia Hypertension Hyperlipidemia HPI 10/13/2024 84-year-old male with history of chronic systolic congestive heart failure, hypertension, hyperlipidemia, CKD was referred to the emergency department by his tafe teacher for suspected bladder outlet obstruction. Patient was evaluated in the emergency department his bladder scan showed over 800 mL of urine in his bladder abdominal CT was performed which showed severe bilateral hydronephrosis and hydroureter with urinary bladder distention which may indicate bladder outlet obstruction. Moderate to large fat-containing bilateral inguinal hernias, prominent sigmoid diverticulosis without diverticulitis. Reed catheter was inserted while patient was in the emergency department, he had around 1 L output at the time my exam the Reed catheter was clamped. Labs are significant for a creatinine of 1.91 GFR of 34 BUN of 36 hemoglobin 0.9 hematocrit 36.5 UA with 3+ glucose. ED provider discussed case with nephrology, urology and patient will be admitted for further management with Reed catheter in place. Patient lives that he used to be on Flomax, he stopped it for around a week but reports he started taking it again. Unclear on the timeline of this. Hospital Course: Patient was admitted due to severe bilateral hydroureteronephrosis. He had reported that he stopped taking Flomax at some time and then restarted it. Nephrology and urology were consulted. Initially, Reed catheter was placed with 1 L of urine output prior to clamping the catheter. Kidney function had improved with satisfactory urine output this admission. He will be discharged with the Reed catheter in place and home health will provide support upon discharge. Dr. Lockhart and nephrology cleared him for discharge to continue with Flomax and ciprofloxacin. Follow-up with urology and nephrology is necessary for continued treatment and management. Physical Exam General: AAO x3, NAD HEENT: Atraumatic, PERRLA, EOMI, Sclerae nonicteric Neck: Supple, 2+ carotid pulse no bruit, No LAD, Without JVD or thyroid abnormality Respiratory: Clear BBS, Normal air movement, on RA Cardiovascular: RRR, Normal S1 S2 Gastrointestinal: Normal bowel sounds, No tenderness Neurological: Normal gait, Normal speecht Vital Signs/Physical Exam: Temp Pulse Resp BP Pulse Ox 98.1 F 54 16 157/74 H 96 10/15/24 08:00 10/15/24 08:00 10/15/24 08:00 10/15/24 08:00 10/15/24 08:00 Laboratory Data at Discharge: WBC 5.20 thou/uL (4.3-10.9) 10/15/24 06:36 Hgb 10.7 g/dL (13.6-17.9) L 10/15/24 06:36 Hct 31.9 % (39.6-49.0) L 10/15/24 06:36 Plt Count 115 thou/uL (152-406) L 10/15/24 06:36 Sodium 143 mEq/L (136-145) 10/15/24 06:36 Potassium 4.0 mEq/L (3.5-5.1) 10/15/24 06:36 BUN 20 mg/dL (7-18) H 10/15/24 06:36 Creatinine 1.37 mg/dL (0.70-1.30) H 10/15/24 06:36 Glucose 90 mg/dL (74-106) 10/15/24 06:36 Total Bilirubin 0.4 mg/dL (0.2-1.0) 10/13/24 12:28 AST 13 U/L (15-37) L 10/13/24 12:28 ALT 17 U/L (16-61) 10/13/24 12:28 Alkaline Phosphatase 78 U/L (45-117) 10/13/24 12:28 Lipase 45 U/L (13-75) 10/13/24 12:28 Home Medications: Atorvastatin Calcium [Lipitor] 40 mg PO BEDTIME 10/13/24 Carvedilol [Coreg] 12.5 mg PO BID 10/13/24 Dapagliflozin Propanediol [Farxiga] 5 mg PO DAILY 10/13/24 Sacubitril/Valsartan [Entresto 49 mg-51 mg Tablet] 49 mg PO BID 10/13/24 Tamsulosin [Flomax*] 0.4 mg PO DAILY 10/13/24 Ciprofloxacin HCl [Cipro 500 MG Tablet] 500 mg PO BID 10 Days #20 tab 10/15/24 Tamsulosin [Flomax*] 0.4 mg PO BEDTIME 30 Days #30 cap 10/15/24 New Medications: Ciprofloxacin HCl [Cipro 500 MG Tablet] 500 mg PO BID 10 Days #20 tab Tamsulosin [Flomax*] 0.4 mg PO BEDTIME 30 Days #30 cap Physician Discharge Instructions: 1. Please call and schedule a follow-up appointment with your PCP in 3-5 days - Please follow-up with your PCP for medication refills/adjustments 2. Please call and schedule a follow-up appointment with Dr. Lockhart in 2 weeks -Expect voiding trial discussion at this visit 3. Continue regular diet 4. activity restrictions fall precautions with urinary bag present 5. Return to the ED if symptoms worsen New medications Flomax 0.4 mg at bedtime Ciprofloxacin 400 mg twice daily for 10 days Diet: Regular Activity: Fall precautions Followup: Javed Lockhart [ACTIVE - CAN ADMIT] - 1-2 Weeks Amelia Llanos DO [Primary Care Provider] - 1-2 Weeks
--- NOTE | 2024-10-15 10:32 | P.PN ---
Date of Service: 10/15/24 84-year-old gentleman with significant past medical history of chronic kidney disease, hypertension complicated with congestive heart failure and CAD, hyperlipidemia. The patient came to Dr. Fuchs, found to have possible obstructive uropathy. For that reason, the patient was referred to the hospital. In the hospital, the patient was found bilateral hydronephrosis, Reed inserted. Upon arrival to the hospital, creatinine 1.9. The patient's, after Reed insertion, kidney function has been improved, currently creatinine down to 1.4, GFR of 49. The patient denied taking any nonsteroidal. No IV contrast. Creatinine continue to improve Physical exam Temp Pulse Resp BP Pulse Ox 98.1 F 54 16 157/74 H 96 10/15/24 08:00 10/15/24 08:00 10/15/24 08:00 10/15/24 08:00 10/15/24 08:00 Chest: Clear to auscultation. Heart: S1, S2. Regular. Systolic murmur. Abdomen: Soft, nontender. Extremity: Dressing on the foot. Neurologic: Alert. No focality Acetaminophen (Acetaminophen 325 Mg Tablet) 650 mg PO Q4HP PRN PRN Reason: Pain scale 2-4 (Mild) Atorvastatin Calcium (Atorvastatin 40 Mg Tab) 40 mg PO BEDTIME [facility] Last Admin: 10/14/24 21:32 Dose: 40 mg Carvedilol (Carvedilol 12.5 Mg Tab) 12.5 mg PO BID [facility] Last Admin: 10/15/24 09:17 Dose: 12.5 mg Heparin Sodium (Porcine) (Heparin 5000 Unit/Ml 1 Ml Vial) 5,000 unit SQ Q12HR [facility] Last Admin: 10/15/24 09:17 Dose: 5,000 unit Home Med (Dapagliflozin Propanediol [Farxiga]) 5 mg PO DAILY [facility] Last Admin: 10/15/24 09:16 Dose: 5 mg Sodium Chloride (Ns 1000 Ml Ivbag) 1,000 mls @ 50 mls/hr IV .Q20H [facility] Last Admin: 10/15/24 09:17 Dose: 1,000 mls Ondansetron HCl (Ondansetron 4 Mg/2 Ml Vial) 4 mg IV Q6HP PRN PRN Reason: NAUSEA / VOMITING Tamsulosin HCl (Tamsulosin 0.4 Mg Sr Cap) 0.4 mg PO BEDTIME [facility] Last Admin: 10/14/24 21:32 Dose: 0.4 mg Laboratory Last Values WBC 5.10 thou/uL (4.3-10.9) 10/13/24 12:28 RBC 4.12 M/uL (4.33-5.43) L 10/13/24 12:28 Hgb 11.9 g/dL (13.6-17.9) L 10/13/24 12:28 Hct 36.5 % (39.6-49.0) L 10/13/24 12:28 MCV 88.6 fL (80-100) 10/13/24 12:28 MCH 28.7 pg (27.0-35.0) 10/13/24 12: MCHC 32.4 g/dL (32.0-36.0) 10/13/24 12:28 RDW 14.6 % (12.1-15.2) 10/13/24 12:28 Plt Count 135 thou/uL (152-406) L 10/13/24 12:28 MPV 10.3 fL (7.6-11.3) 10/13/24 12:28 Neutrophils % 60.5 % (41.7-73.7) 10/13/24 12:28 Lymphocytes % 23.5 % (15.3-44.8) 10/13/24 12:28 Monocytes % 7.9 % (3.3-12.3) 10/13/24 12:28 Eosinophils % 7.3 % (0-4.4) H 10/13/24 12:28 Basophils % 0.8 % (0-1.3) 10/13/24 12:28 Absolute Neutrophils 3.1 K/uL (1.8-8.0) 10/13/24 12:28 Absolute Lymphocytes 1.2 K/uL (0.7-4.9) 10/13/24 12: Absolute Monocytes 0.4 K/uL (0.1-1.3) 10/13/24 12:28 Absolute Eosinophils 0.4 K/uL (0-0.5) 10/13/24 12:28 Absolute Basophils 0.0 K/uL (0-0.5) 10/13/24 12:28 Sodium 143 mEq/L (136-145) 10/13/24 12:28 Potassium 4.6 mEq/L (3.5-5.1) 10/13/24 12:28 Chloride 114 mEq/L (98-107) H 10/13/24 12:28 Carbon Dioxide 25 mEq/L (21-32) 10/13/24 12:28 Anion Gap 8.6 mEq/L (5.0-15.0) 10/13/24 12:28 BUN 36 mg/dL (7-18) H 10/13/24 12:28 Creatinine 1.91 mg/dL (0.70-1.30) H 10/13/24 12:28 Est GFR (CKD-EPI) 34 ml/min (=/>90) L 10/13/24 12:28 Glucose 97 mg/dL (74-106) 10/13/24 12: Calcium 8.8 mg/dL (8.5-10.1) 10/13/24 12:28 Total Bilirubin 0.4 mg/dL (0.2-1.0) 10/13/24 12:28 AST 13 U/L (15-37) L 10/13/24 12:28 ALT 17 U/L (16-61) 10/13/24 12:28 Alkaline Phosphatase 78 U/L (45-117) 10/13/24 12:28 Serum Total Protein 6.9 g/dL (6.4-8.2) 10/13/24 12:28 Albumin 3.4 g/dL (3.4-5.0) 10/13/24 12:28 Globulin 3.5 g/dL (2.3-3.5) 10/13/24 12:28 Albumin/Globulin Ratio 1.0 (1.1-1.8) L 10/13/24 12:28 Lipase 45 U/L (13-75) 10/13/24 12:28 Urine Color Colorless (Yellow) 10/13/24 12:20 Urine Clarity Clear (Clear) 10/13/24 12:20 Urine pH 5.0 (5.0-7.0) 10/13/24 12:20 Ur Specific [place] 1.007 (1.005-1.030) 10/13/24 12:20 Glucose (UA)(Auto) 3+ (Negative) H 10/13/24 12:20 Urine Ketones Negative (Negative) 10/13/24 12:20 Urine Blood Negative (Negative) 10/13/24 12:20 Urine Nitrite Negative (Negative) 10/13/24 12:20 Urine Bilirubin Negative (Negative) 10/13/24 12:20 Urine Urobilinogen Normal (Normal) 10/13/24 12:20 Ur Leukocyte Esterase Negative Kye/uL (Negative) 10/13/24 12:20 Urine Total Protein Negative (Negative) 10/13/24 12:20 Assessment And Plan: 1. Acute kidney injury secondary to obstructive uropathy, currently normal volume, good urine output. Kidney function has been improving. I am going to continue Reed. We will start the patient on Flomax and Patient clear from the renal standpoint for DC planning follow-up with urology as outpatient follow-up with the office in 2 to 3 weeks 2. Hypertension, controlled, optimal. Continue Entresto. Decrease IV fluid. 3. Congestive heart failure. Normal volume. Continue current treatment. Decrease IV fluid. Plan to discharge tomorrow. 4. Obstructive uropathy. As above, started Flomax. Continue Reed.
== END 2024-10-15 12:06 | disposition home health service (06) | DRG 683 ==
LOC: ER 11:36 → ERHOLD 14:27 → 2ND 15:15
PROVIDERS: ADMIT Hospitalist; ATTEND Internal Medicine
DX: N17.9 Acute kidney failure, unspecified (principal); I13.0 Hypertensive heart and chronic kidney disease with heart failure and stage 1 through stage 4 chronic kidney disease, or unspecified chronic kidney disease; I50.22 Chronic systolic (congestive) heart failure; N13.8 Other obstructive and reflux uropathy; N32.0 Bladder-neck obstruction; N13.30 Unspecified hydronephrosis; E78.5 Hyperlipidemia, unspecified; N18.9 Chronic kidney disease, unspecified; R00.1 Bradycardia, unspecified; Z79.2 Long term (current) use of antibiotics; Z79.01 Long term (current) use of anticoagulants; I25.10 Atherosclerotic heart disease of native coronary artery without angina pectoris; Z95.1 Presence of aortocoronary bypass graft; Z90.49 Acquired absence of other specified parts of digestive tract; Z87.891 Personal history of nicotine dependence; N40.1 Benign prostatic hyperplasia with lower urinary tract symptoms; R33.8 Other retention of urine
CPT/HCPCS: 36415; 51702; 74176; 76377; 80048; 80053; 81003; 83690; 85025; 99285; J1644; J7030

== ENCOUNTER 2025-01-06 08:42 | Day surgery (SDC) | payer OTHER ==
[2024-12-23 15:19] LABS: PT Prothrombin Time 13.1 SECONDS (10-13.0); Protime INR 1.16
[2024-12-23 15:22] LABS: Absolute Lymphocytes (CBC) 1.3 K/uL (0.7-4.9); Hematocrit 40.0 % (39.6-49.0); Hemoglobin 13.1 g/dL (13.6-17.9); MCH 28.5 pg (27.0-35.0); MCHC 32.7 g/dL (32.0-36.0); MCV 87.2 fL (80-100); MPV 9.2 fL (7.6-11.3); Nucleated RBC Absolute Count 0.0 (0-0); Nucleated Red Blood Cells % 0.1 % (0-0); RBC Red Blood Cell Count 4.59 M/uL (4.33-5.43); White Blood Count 6.10 thou/uL (4.3-10.9)
[2024-12-23 15:26] LABS: Anion Gap 10.0 mEq/L (5.0-15.0); BUN Blood Urea Nitrogen 20.0 mg/dL (7-18); Glucose Level 102.0 mg/dL (74-106); Potassium 5.0 mEq/L (3.5-5.1)
--- NOTE | 2024-12-23 15:30 | RAD REPORT ---
Procedure: Chest Pa And Lat (2 Views) HISTORY: Preop for genitourinary surgery. Hypertension COMPARISON: 2018 FINDINGS: The lungs appear clear of acute infiltrate.. Lungs are mildly to moderately hyperaerated No significant pleural effusion noted. The heart is normal size.. Post surgical changes involve the chest IMPRESSION: No acute abnormality is displayed.
[2024-12-23 15:44] LABS: Urine Culture Reflex Order REFLEXED
[2024-12-23 15:45] LABS: Urine Microscopic Reflex YN NO UMIC
[2025-01-06] MEDS: Ringers Lactate 1,000 ML IV ONE (09:24)
[2025-01-06] MEDS ORDERED: FENTANYL CITR 100 MCG/2 ML ONE ×2 (10:59→12:17)
[2025-01-06] MEDS ORDERED: LIDOCAINE 1% MPF 5 ML VIAL ONE (11:02)
[2025-01-06] MEDS: GENTAMICIN 80 MG/100 ML BAG 160 MG/200 ML BAG IV ONE (11:51)
[2025-01-06] MEDS ORDERED: EPHEDRINE SULF 50 MG/ML VIAL ONE (11:55)
[2025-01-06] MEDS: CEFTRIAXONE 1000 MG/VIAL ONE (12:00)
[2025-01-06] MEDS ORDERED: GLYCOPYRROLATE 0.2 MG/ML SYR ONE (12:01)
[2025-01-06] MEDS ORDERED: ONDANSETRON 4 MG/2 ML VIAL ONE (12:22)
[2025-01-06] MEDS ORDERED: CODEINE 30MG/APAP 300MG TAB PO PRN (13:30)
[2025-01-06 13:40] VITALS: O2SAT 96
--- NOTE | 2025-01-06 13:44 | P.OP ---
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 After evaluation, he was counseled on options to include the UroLift versus bipolar TURP. Today, he elected to proceed with bipolar TURP since he had an episode of catheter associated obstruction yesterday, which likely was due to sediment/debris, increasing the risk of significant bacterial colonization of his urine and therefore the risk of chronic infection of the implants proposed with the UroLift. As a result, we changed from UroLift to bipolar TURP. Procedure note: The patient was consented in the preoperative holding area before being transferred to the operative suite where general anesthesia was induced. He was given ceftriaxone 1 g IV antimicrobial prophylaxis, and gentamicin 160 mg IV antimicrobial prophylaxis. Pneumoboots were provided for DVT prophylaxis. He was placed in the lithotomy position, padded and secured to the table appropriately. His genitalia was prepped with Hibiclens and he was draped in standard fashion. Because of some glandar penile adhesions because of some chronic posthitis, additional preparation with Betadine was performed beneath the foreskin using the tip of a small Radha clamp. Urethral sounds were used to then dilate the meatus and fossa navicularis to 30 Vietnamese. Then, using a visual obturator and a 26 x 27 Vietnamese bipolar resectoscope sheath, I was able to traverse the urethra and navigate beyond the prostatic urethra entering the bladder with ease. I decompressed the bladder of fluid and urine and surveyed it. There were no papillary mucosal lesions, foreign bodies, or stones. There was evidence of what appeared to be mild chronic cystitis associated likely with the indwelling catheter. I then switched the visual obturator for the thick bipolar loop, and I began resecting the elevated median bar and intraluminal projecting median lobar tissue keeping the right ureteral orifice and visualization before doing the same to that tissue keeping the left ureteral orifice and visualization. I then resected the intervening median lobar tissue until it was smooth with the level of the trigone. I then continued to resect that median bar down to the level of the verumontanum, creating a smooth trough. I then extended that trough initially into the left lateral posterior starting at the bladder neck and extending to the apex of the prostate. That was then extended into the mid and anterior zone of the prostate on the left side, again starting at the bladder neck and extending to the apex. I then did the contralateral side in a similar fashion before ultimately elect evacuating prostate chips and spending time fulgurating any bleeders. Then, with the bladder decompressed, I continued resecting any intraluminally intruding tissue until I achieved a widely patent and smooth trough with the bladder decompressed still patent. I resected the interdigitating apical tissue until it was close in the midline but no longer approximating or overlapping. The verumontanum was left intact, and no resection was performed beyond the verumontanum. Again, after removing all prostate chips from within the bladder using direct visualization after Ilich evacuation, I then ensured absolute hemostasis with the bladder decompressed and no fluid in flow. Once completely hemostatic, I retrograde filled his bladder and removed the scope surveying the urethra on the way out. With no additional prostate chips identified, I then passed a 22 Vietnamese three-way Reed catheter via his urethra into his bladder with ease and I placed 30 cc of sterile water in the balloon. The catheter was placed to moderate traction on his left lower thigh, and slow drip CBI with NS was initiated. The outflow was crystal-clear. He was then awakened from general anesthesia after being taken out of the lithotomy position, transferred to a stretcher, and then transferred to the recovery room in good condition. Complications: None Discharge disposition: We would plan a voiding trial on Sunday in the urology clinic. Cipro given for antimicrobial therapy/prophylaxis for the next 3 days. Subsequent follow-up may be established in about 3 months assuming no issues voiding.
[2025-01-06] MEDS: PHENAZOPYRIDINE 100MG TAB PO ONE (13:52)
[2025-01-06] MEDS ORDERED: OXYBUTYNIN ER 5 MG TAB PO ONE (13:52)
[2025-01-06] MEDS ORDERED: PHENAZOPYRIDINE 100MG TAB PO ONE (13:52)
[2025-01-06] MEDS: OXYBUTYNIN ER 5 MG TAB PO ONE (13:53)
[2025-01-06 16:05] VITALS: BP 124/58; TEMP 97.5
== END 2025-01-06 14:55 | disposition home or self-care (01) ==
LOC: OR 08:42
PROVIDERS: ATTEND Urology
PROC: 0VT08ZZ Resection of Prostate, Via Natural or Artificial Opening Endoscopic (ICD-10-PCS; principal; 2025-01-06 10:15)
DX: N40.1 Benign prostatic hyperplasia with lower urinary tract symptoms (principal); N13.8 Other obstructive and reflux uropathy; R33.9 Retention of urine, unspecified
CPT/HCPCS: 93005; 87088; 85025; 87086; 80048; 36415; 85610; 88305; 81003; 71046; 52601; J2704; J2003; J3010 ×2; J2405; J7120; J1580; J0696